=== PATIENT | male | born 1990 | race Caucasian/White ===

== ENCOUNTER 2017-11-18 16:47 | Emergency (ER) | payer OTHER ==
[~2017-11-18] VITALS: Ht 177.8 cm; Wt 72.6 kg
[~2017-11-18 16:47] MED LIST: AUGMENTIN 875-1 EACH PO; FLONASE 0.05%50 MCG NASAL
[2017-11-18] MEDS ORDERED: NASAL DECONGEST30 ML NASAL (16:57)
[2017-11-18] MEDS ORDERED: FLONASE 0.05%50 MCG NASAL (17:07)
[2017-11-18 17:18] VITALS: BP 131/59
== END 2017-11-18 17:18 | disposition home or self-care (01) ==
LOC: M.ERS 16:47
DX: J34.89 Other specified disorders of nose and nasal sinuses (principal)

== ENCOUNTER 2017-11-27 13:01 | Emergency (ER) | payer OTHER ==
[~2017-11-27] VITALS: Ht 177.8 cm; Wt 74.8 kg
[~2017-11-27 13:01] MED LIST changes: +NASAL DECONGEST30 ML NASAL
[2017-11-27 13:09] VITALS: BP 153/68
[2017-11-27] MEDS ORDERED: NAPROSYN500 MG PO (13:28)
[2017-11-27] MEDS ORDERED: ROBAXIN500 MG PO (13:28)
== END 2017-11-27 13:42 | disposition home or self-care (01) ==
LOC: M.ERS 13:01
DX: S06.0X0A Concussion without loss of consciousness, initial encounter (principal); S16.1XXA Strain of muscle, fascia and tendon at neck level, initial encounter; V89.2XXA Person injured in unspecified motor-vehicle accident, traffic, initial encounter; Y93.89 Activity, other specified; Y92.89 Other specified places as the place of occurrence of the external cause; Y99.8 Other external cause status

== ENCOUNTER 2018-03-19 23:00 | Emergency (ER) | payer OTHER ==
[~2018-03-19] VITALS: Ht 177.8 cm; Wt 68.0 kg
[~2018-03-19 23:00] MED LIST changes: +NAPROSYN500 MG PO; +ROBAXIN500 MG PO
[2018-03-20] MEDS ORDERED: ATROVENT NASAL SPRAY NASAL (00:28)
[2018-03-20] MEDS ORDERED: FLONASE 0.05%50 MCG NASAL (00:28)
[2018-03-20] MEDS ORDERED: AMOXICILLIN500 M1 PO (00:28)
[2018-03-20 00:33] VITALS: BP 108/64
== END 2018-03-20 00:34 | disposition home or self-care (01) ==
LOC: M.ERS 23:00
DX: J02.9 Acute pharyngitis, unspecified (principal); J32.9 Chronic sinusitis, unspecified